=== PATIENT | female | born 1970 | race Caucasian/White ===

== ENCOUNTER 2022-10-23 16:41 | Emergency (ER) | payer BC ==
[2022-10-23] MEDS ORDERED: Acetaminophen 325 MG Tab PO ONE (17:00)
[2022-10-23 17:24] LABS: BASOPHILS PERCENT AUTO 0.5 % (0.0-1.5); EOSINOPHILS PERCENT AUTO 0.2 % (0.0-7.0); HEMATOCRIT 34.9 % (36.0-46.0); HEMOGLOBIN 10.7 g/dL (12.0-16.0); LYMPHOCYTES ABSOLUTE AUTO 2.1 K/uL (0.6-2.4); LYMPHOCYTES PERCENT AUTO 25.2 % (16.0-40.0); MEAN CORPUSCULAR HEMOGLOBIN 25.1 pg (27.0-32.0); MEAN CORPUSCULAR HGB CONC 30.7 g/dL (31.0-37.0); MEAN CORPUSCULAR VOLUME 81.9 fL (80.0-98.0); MONOCYTES ABSOLUTE AUTO 0.5 K/uL (0.0-0.8); MONOCYTES PERCENT AUTO 6.5 % (0.0-15.0); NEUTROPHILS ABSOLUTE AUTO 5.6 K/uL (1.4-5.7); NEUTROPHILS PERCENT AUTO 67.6 % (48.0-80.0); NRBC ABSOLUTE 0 K/uL; RED BLOOD CELL COUNT 4.26 M/uL (4.30-5.90); WHITE BLOOD CELL COUNT,WBC 8.25 K/uL (4.0-11.0)
[2022-10-23 17:33] LABS: INR 1.04 (0.86-1.11)
[2022-10-23 17:38] LABS: PLATELET COUNT,PLT 636 K/uL (150-400)
[2022-10-23 17:48] LABS: ALBUMIN 3.7 g/dL (3.4-5.0); CALCIUM 9.3 mg/dL (8.5-10.1); CREATININE 0.9 mg/dL (0.6-1.0); EST CRCL DRUG DOSING (CG) 57.06 mL/min; POTASSIUM,K 4.3 mmol/L (3.5-5.1); PROTEIN TOTAL,TP 7.4 g/dL (6.4-8.2)
[2022-10-23] MEDS ORDERED: Morphine 4 MG/ML Syringe IVPUSH ONE (18:51)
[2022-10-23] MEDS ORDERED: Iopamidol 755 MG/ML 500 ML Multipack Bottle IVPUSH ONE (19:39)
[2022-10-23] MEDS ORDERED: traMADol 50 MG Tab PO ONE (21:20)
[2022-10-23] MEDS ORDERED: Ondansetron 4 MG Tab.DIS PO ONE (21:20)
== END 2022-10-23 21:30 | disposition home or self-care (01) ==
LOC: MW.ED 16:41 → MERGE 16:41 → MW.ED 21:30
DX: S83.92XA Sprain of unspecified site of left knee, initial encounter (principal); W19.XXXA Unspecified fall, initial encounter
CPT/HCPCS: 36415; 73502; 73552; 73562; 73706; 80053; 85025; 85610; 93971; 96374; 99284; A9270; J2270; Q9967